=== PATIENT | female | born 2000 | race Two or more races ===

== ENCOUNTER → 2022-02-27 | Emergency (ER) | payer SELFPAY ==
[~2022-02-27] VITALS: Ht 170.2 cm; Wt 77.2 kg
[~2022-02-27] MED LIST: KETOROLAC TROMETH 60MG/2ML VIAL IM ONE
[2022-02-27 15:52] VITALS: BP 111/58
== END | disposition home or self-care (01) ==
LOC: ER 15:35 → EDBD 15:35
DX: S16.1XXA Strain of muscle, fascia and tendon at neck level, initial encounter (principal); V43.52XA Car driver injured in collision with other type car in traffic accident, initial encounter; Y93.89 Activity, other specified; Y92.410 Unspecified street and highway as the place of occurrence of the external cause; Y99.8 Other external cause status
CPT/HCPCS: 72040